=== PATIENT | male | born 1950 | race Caucasian/White ===

== ENCOUNTER 2016-11-04 22:15 | Inpatient (IN) | payer OTHER ==
[~2016-11-04] VITALS: Ht 165.1 cm; Wt 90.7 kg
[~2016-11-04 22:15] MED LIST: ASPI325T4 PO; HYDR-2666 PO; OMEG10006 PO
--- NOTE | 2016-11-04 23:50 | PHYS DOC ---
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 States he missed a step going up the steps. Has right neck pain, back pain, right hip pain, and right groin pain. States low back pain is the worst and is acute on chronic. All pains are constant, achy, severe, and worse with movement. He denies LOC, headache, vision changes, dizziness, nausea or vomiting, chest pain, dyspnea, abdominal pain, saddle anesthesia, numbness, tingling, weakness. Review of Systems Review of Systems Constitutional: Denies fever or chills [] Eyes: Denies change in visual acuity, redness, or eye pain [] HENT: Denies nasal congestion or sore throat [] Respiratory: Denies cough or shortness of breath [] Cardiovascular: No additional information not addressed in HPI [] GI: Denies abdominal pain, nausea, vomiting, bloody stools or diarrhea [] : Denies dysuria or hematuria [] Musculoskeletal: Has back pain and joint pain [] Integument: Denies rash or skin lesions [] Neurologic: Denies headache, focal weakness or sensory changes [] Endocrine: Denies polyuria or polydipsia [] Current Medications Current Medications Current Medications Medications (Trade) Dose Ordered Sig/Kiara Start Time Stop Time Status Last Admin Dose Admin Acetaminophen (Tylenol) 650 mg PRN Q4HRS PRN 11/05/16 01:00 11/06/16 00:59 Fentanyl Citrate (Fentanyl 2ml Vial) 50 mcg PRN Q15MIN PRN 11/04/16 23:15 11/05/16 23:14 11/05/16 00:45 50 MCG Ketorolac Tromethamine (Toradol) 15 mg 1X ONCE 11/05/16 01:00 11/05/16 01:01 DC 11/05/16 01:29 15 MG Morphine Sulfate 4 mg PRN Q2HR PRN 11/05/16 01:00 11/06/16 00:59 Nicotine (Nicoderm Cq 21mg) 1 patch 1X ONCE 11/05/16 02:30 11/05/16 02:31 DC Ondansetron HCl (Zofran) 4 mg PRN Q8HRS PRN 11/05/16 01:00 11/06/16 00:59 Allergies Allergies Allergies Coded Allergies Type Severity Reaction Last Updated Verified prochlorperazine Allergy Unknown seizures 02/04/15 No Physical Exam Physical Exam Constitutional: Well developed, well nourished, no acute distress, non-toxic appearance. [] HENT: Normocephalic, atraumatic, bilateral external ears normal, oropharynx moist, nose normal. [] Eyes: PERRLA, EOMI. [] Neck: Normal range of motion, supple. Has right paraspinal and midline spinal tenderness with no palpable abnormality. [] Cardiovascular:Heart rate regular rhythm [] Lungs & Thorax: Bilateral breath sounds clear to auscultation. No chest wall tenderness [] Abdomen: Bowel sounds normal, soft, no tenderness. [] Skin: Warm, dry, no erythema, no rash. [] Back: No midline spinal tenderness, no CVA tenderness. Has bilateral thoracic and lumbar paraspinal tenderness with no palpable abnormality. Has tenderness about right SI joint. [] Extremities: Stable pelvis. No obvious deformity or discoloration of extremities. Has some right lateral hip tenderness with no visual or palpable abnormality. No joint tenderness otherwise. Full ROM of RUE, LUE, and LLE. Has very limited ROM of right hip due to pain in hip and back. Normal right knee/ ankle/toe ROM. Equal radial and dp pulses. Sensation intact to light touch. Neurologic: Alert and oriented X 3, normal motor function, normal sensory function, no focal deficits noted. [] Psychologic: Affect normal, judgement normal, mood normal. [] Current Patient Data Vital Signs Vital Signs Date Time Temp Pulse Resp B/P Pulse Ox O2 Delivery O2 Flow Rate FiO2 11/05/16 00:45 18 96 11/05/16 00:08 Room Air 11/04/16 22:15 98.6 64 122/60 98.6 Lab Values Laboratory Tests Test 11/05/16 01:45 White Blood Count 10.5x10^3/uL (4.0-11.0) Red Blood Count 5.13x10^6/uL (4.30-5.70) Hemoglobin 16.0g/dL (13.0-17.5) Hematocrit 47.8% (39.0-53.0) Mean Corpuscular Volume 93fL (79-100) Mean Corpuscular Hemoglobin 31pg (25-35) Mean Corpuscular Hemoglobin Concent 34g/dL (31-37) Red Cell Distribution Width 13.7% (11.5-14.5) Platelet Count 260x10^3/uL (140-400) Neutrophils (%) (Auto) 46% (31-73) Lymphocytes (%) (Auto) 41% (24-48) Monocytes (%) (Auto) 7% (0-9) Eosinophils (%) (Auto) 5% (0-3) H Basophils (%) (Auto) 1% (0-3) Neutrophils # (Auto) 4.8x10^3uL (1.8-7.7) Lymphocytes # (Auto) 4.3x10^3/uL (1.0-4.8) Monocytes # (Auto) 0.7x10^3/uL (0.0-1.1) Eosinophils # (Auto) 0.5x10^3/uL (0.0-0.7) Basophils # (Auto) 0.1x10^3/uL (0.0-0.2) Sodium Level 145mmol/L (136-145) Potassium Level 3.8mmol/L (3.5-5.1) Chloride Level 107mmol/L (98-107) Carbon Dioxide Level 29mmol/L (21-32) Anion Gap 9 (6-14) Blood Urea Nitrogen 20mg/dL (8-26) Creatinine 0.8mg/dL (0.7-1.3) Estimated GFR (Cockcroft-Gault) 96.4 Glucose Level 101mg/dL (70-99) H Calcium Level 9.5mg/dL (8.5-10.1) Laboratory Tests 11/05/16 01:45 Laboratory Tests 11/05/16 01:45 Radiology/Procedures Radiology/Procedures X-ray of right hip and pelvis as interpreted by me was no acute fracture or dislocation CT head and C-spine without contrast IMPRESSION: 1. No acute intracranial process. 2. No acute osseous injury involving the cervical spine. Degenerative changes present throughout. Electronically signed by: Nidhi Borja (Nov 04, 2016 23:56:50) CT thoracic spine without contrast IMPRESSION: No acute fracture or malalignment. Degenerative changes present throughout. Electronically signed by: Nidhi Borja (Nov 05, 2016 00:00:44) CT lumbar spine without contrast IMPRESSION 1. Multilevel degenerative change in the lumbar spine with spinal stenosis and foraminal stenosis. 2. No acute fracture. Electronically signed by: Alan Story MD (Nov 05, 2016 00:17:59) CT pelvis without contrast IMPRESSION 1. Degenerative disc disease and degenerative facet arthritis in the lower lumbar spine. 2. No acute pelvic fracture. Electronically signed by: Alan Story MD (Nov 05, 2016 01:52:13) Course & Med Decision Making Course & Med Decision Making Pertinent Labs and Imaging studies reviewed. (See chart for details) Laboratory and imaging evaluation is unremarkable. His pain is not controlled and he will not ambulate due to significant low back pain. Will admit for symptom control. Discussed case with Dr. Martínez, who will admit. Dragon Disclaimer Dragon Disclaimer This electronic medical record was generated, in whole or in part, using a voice recognition dictation system. Departure Departure Impression: Primary Impression: Back pain Additional Impressions: Neck pain on right side Right hip pain Acute thoracic back pain Disposition: ADMITTED INPATIENT Condition: STABLE Referrals: YOVANNY HERNANDEZ MD (PCP) Problem Qualifiers Primary Impression: Back pain Back pain location: low back pain Chronicity: acute Back pain laterality: right Sciatica presence: without sciatica Qualified Code: M54.5 - Low back pain Additional Impressions: Acute thoracic back pain Back pain laterality: midline Qualified Code: M54.6 - Pain in thoracic spine Dary BENTLEY MD Nov 04, 2016 23:50
--- NOTE | 2016-11-04 23:57 | RAD ---
INDICATION: 66-year-old male fell backwards down stairs, with head and neck pain. COMPARISON: None TECHNIQUE: Axial, noncontrast CT images obtained through the head and cervical spine. Coronal and sagittal reformats are provided of the cervical spine. One or more of the following individualized dose reduction techniques were utilized for this examination: 1. Automated exposure control; 2. Adjustment of the mA and/or kV according to patient size; 3. Use of iterative reconstruction technique. FINDINGS: No acute intracranial process is identified, specifically no acute blood products, midline shift, mass effect or extra-axial fluid collections. Ventricles and sulci appear appropriate for patient's age. Basilar cisterns are maintained. The visualized paranasal sinuses are clear. Mastoid air cells are clear. No calvarial fracture is present. Overlying scalp is intact. No acute fracture or dislocation is seen within the cervical spine. The C1-C2 articulation is maintained. Normal cervical lordosis and alignment is maintained. The posterior elements are intact. Degenerative changes are present throughout. Visualized soft tissues of the neck demonstrate no acute finding. Visualized lung apices are clear. IMPRESSION: 1. No acute intracranial process. 2. No acute osseous injury involving the cervical spine. Degenerative changes present throughout. Electronically signed by: Nidhi Borja (Nov 04, 2016 23:56:50)
--- NOTE | 2016-11-05 00:02 | RAD ---
INDICATION: Fell backwards down stairs, upper back pain. COMPARISON: None TECHNIQUE: Axial CT images obtained through the thoracic spine without intravenous contrast. Coronal and sagittal reformats are provided. One or more of the following individualized dose reduction techniques were utilized for this examination: 1. Automated exposure control; 2. Adjustment of the mA and/or kV according to patient size; 3. Use of iterative reconstruction technique. FINDINGS: No acute fracture or dislocation is seen. Normal thoracic kyphosis and alignment is maintained. Posterior elements remain intact and aligned. Degenerative changes are present throughout the thoracic spine. Visualized lungs demonstrate mild atelectasis. Scattered calcified granulomas present. IMPRESSION: No acute fracture or malalignment. Degenerative changes present throughout. Electronically signed by: Nidhi Borja (Nov 05, 2016 00:00:44)
[2016-11-05] MEDS: FENTANYL PF 100 MCG/2 ML VIAL. IV PRN ×2 (00:08→00:45)
--- NOTE | 2016-11-05 00:29 | RAD ---
PROCEDURE CT lumbar spine without contrast HISTORY back pain after fall backwards down stairs; pt unable to raise arms for exam TECHNIQUE One or more of the following individualized dose reduction techniques were utilized for this examination: 1. Automated exposure control; 2. Adjustment of the mA and/or kV according to patient size; 3. Use of iterative reconstruction technique.One or more of the following individualized dose reduction techniques were utilized for this examination: 1. Automated exposure control; 2. Adjustment of the mA and/or kV according to patient size; 3. Use of iterative reconstruction technique. COMPARISON Comparison made with an MRI from June 2013. Findings There is atherosclerotic change in the aorta without an aneurysm. There is degenerative and hypertrophic change in the lumbar spine. There is no acute fracture. There is disc space narrowing at multiple levels. There is mild retrolisthesis of L2 relative to L3. There is a prominent spur at L2-3 with spinal stenosis and bilateral foraminal stenosis at that level. There is also foraminal stenosis at L3-4 and to a lesser extent at L4-5 and L5-S1. There is also moderate spinal stenosis at L3-4 and L4-5. IMPRESSION 1. Multilevel degenerative change in the lumbar spine with spinal stenosis and foraminal stenosis. 2. No acute fracture. Electronically signed by: Alan Story MD (Nov 05, 2016 00:17:59)
[2016-11-05] MEDS ORDERED: ONDANSETRON PF 4 MG/2 ML VIAL. IV PRN (01:00)
[2016-11-05] MEDS ORDERED: ACETAMINOPHEN 325 MG TABLET. PO PRN (01:00)
[2016-11-05] MEDS ORDERED: KETOROLAC 15 MG/ML VIAL. IV ONE (01:00)
--- NOTE | 2016-11-05 01:53 | RAD ---
PROCEDURE CT pelvis without contrast HISTORY SI pain with movement after fall yesterday
TECHNIQUE One or more of the following individualized dose reduction techniques were utilized for this examination: 1. Automated exposure control; 2. Adjustment of the mA and/or kV according to patient size; 3. Use of iterative reconstruction technique.One or more of the following individualized dose reduction techniques were utilized for this examination: 1. Automated exposure control; 2. Adjustment of the mA and/or kV according to patient size; 3. Use of iterative reconstruction technique. COMPARISON None FINDINGS Axial CT images were obtained through the pelvis. Sagittal and coronal reconstructed images were reviewed. Appendix is normal. Bladder is mildly distended. There is no pelvic adenopathy or mass noted bowel pattern is normal. There is marked facet arthritis in the lower lumbar spine. A pelvic fracture is not identified. A hip fracture is not evident. There is degenerative disc disease in the lower lumbar spine. IMPRESSION 1. Degenerative disc disease and degenerative facet arthritis in the lower lumbar spine. 2. No acute pelvic fracture. Electronically signed by: Alan Story MD (Nov 05, 2016 01:52:13)
[2016-11-05 02:00] LABS: BASO # 0.1 x10^3/uL (0.0-0.2); BASO % 1 % (0-3); EOS % 5 % (0-3); HEMATOCRIT 47.8 % (39.0-53.0); LYMPH # 4.3 x10^3/uL (1.0-4.8); LYMPH % 41 % (24-48); MEAN CORPUSCULAR HEMOGLOBIN 31 pg (25-35); MEAN CORPUSCULAR HGB CONC 34 g/dL (31-37); MEAN CORPUSCULAR VOLUME 93 fL (79-100); MONO % 7 % (0-9); NEUT % 46 % (31-73); PLATELET COUNT 260 x10^3/uL (140-400); RED BLOOD COUNT 5.13 x10^6/uL (4.30-5.70); RED CELL DISTRIBUTION WIDTH 13.7 % (11.5-14.5); WHITE BLOOD COUNT 10.5 x10^3/uL (4.0-11.0)
[2016-11-05 02:18] LABS: CALCIUM 9.5 mg/dL (8.5-10.1); CREATININE 0.8 mg/dL (0.7-1.3); GFR 96.4; POTASSIUM 3.8 mmol/L (3.5-5.1)
[2016-11-05] MEDS ORDERED: NICOTINE 21MG PATCH. TD ONE (02:30)
--- NOTE | 2016-11-05 02:55 | ACF ---
Admit Criteria Forms Admit Criteria Forms Admit Criteria Forms BACK PAIN Clinical Indications for Admission to Inpatient Care (Place 'X' for any and all applicable criteria): Admission is indicated for ANY ONE of the following (1)(2)(3)(4)(5)(6): [X]I. Inpatient admission required rather than observation care (Also use Back Pain: Observation Care as appropriate) because of ANY ONE of the following [X]a) Severe pain requiring acute inpatient management [ ]b) Immediate inpatient surgery [X]c) Other condition, treatment or monitoring requiring inpatient admission [ ]II. Spine fracture with significant damage or threat of damage to vertebral column or spinal cord [ ]III. Progressive or severe neurologic deficit [ ]IV. Suspected spinal infection (e.g., epidural abscess, vertebral osteomyelitis)(10) [ ]V. Suspected cause requires inpatient treatment (eg, aortic dissection) [ ]. Cauda equina syndrome as indicated by ANY ONE of the following (9): [ ]a) Bowel dysfunction [ ]b) Bladder dysfunction [ ]c) Saddle anesthesia [ ]d) Neurologic abnormality suggesting cauda equina impingement Extended stay beyond goal length of stay may be needed for (3)(25): [ ]a) Spinal cord compression from stenosis, disk, or tumor (8)(9) [ ]b) Traumatic or pathologic vertebral fracture (33) [ ]c) Vertebral infection(10) [ ]d) Severe pain that is difficult to control [ ]e) Older patients(65 years or older) The original [employer] content created by [employer] has been revised. The portions of the content which have been revised are identified through the use of italic text or in bold, and [facility] has neither reviewed nor approved the modified material. All other unmodified content is copyright [facility]. Please see references footnoted in the original [facility] edition 2016 ARTURO SIERRA Nov 05, 2016 02:55
[2016-11-05 03:00] VITALS: BP 154/62
[2016-11-05] MEDS: MORPHINE SULFATE 4 MG/ML DISP.SYRIN. IV PRN ×2 (05:03→09:01)
--- NOTE | 2016-11-05 07:42 | RAD ---
Pelvis with right hip, 3 views, 11/04/2016: History: Fall, pain No fracture or dislocation is identified. There is mild narrowing of the hip joints with mild marginal spurring. The periarticular soft tissues are unremarkable. IMPRESSION: No acute pelvic or right hip abnormality is detected.
[2016-11-05 07:47] VITALS: BP 129/60
[2016-11-05 11:01] VITALS: BP 116/63
[2016-11-05 15:08] VITALS: BP 122/50
[2016-11-05] MEDS ORDERED: PHEN100C PO (15:20)
[2016-11-05] MEDS ORDERED: OXYC5CAP3 PO (15:48)
[2016-11-05] MEDS ORDERED: OMEGA-3 FATTY ACIDS/FISH OIL 1,000 MG CAPSULE. PO SCH (16:00)
[2016-11-05] MEDS ORDERED: ASPIRIN 325 MG TABLET PO SCH (16:00)
[2016-11-05] MEDS ORDERED: HYDROCODONE/APAP 5/325MG TABLET. PO SCH (21:00)
[2016-11-05] MEDS ORDERED: PHENYTOIN SODIUM EXTENDED 100 MG CAPSULE PO SCH (21:00)
--- NOTE | 2016-11-06 17:13 | SSS ---
ADMIT DATE: 11/05/2016 CHIEF COMPLAINT: Status post fall down stairs with back pain. HISTORY OF PRESENT ILLNESS: The patient is a 66-year-old gentleman with history of chronic low back pain for which he is being followed by Dr. Gallegos as well as COPD, CAD, peripheral vascular disease, who presented after falling down the stairs after missing a step. He fell on several baskets of laundry, which had been placed at the bottom of the stairs. Nevertheless, sustained pain to the right neck, back, hip and right groin area and was therefore admitted for pain control. PAST MEDICAL HISTORY: Chronic lower back pain, COPD, CAD, CVA and seizure history. FAMILY HISTORY: Positive for CAD. SOCIAL HISTORY: Lives with his family. Smokes cigarettes and uses e-cig.s. ALLERGIES: PROCHLORPERAZINE. MEDICATIONS: Home medications reconciled with [facility]. REVIEW OF SYSTEMS: Positive for pain in neck and back, mainly on the right. He is able to move and walk. Rest of organ system review was negative. PHYSICAL EXAMINATION: VITAL SIGNS: Show a blood pressure of 116/63, heart rate at 80, respiratory rate at 20. He is afebrile. GENERAL: This is a well-nourished 66-year-old gentleman, alert and oriented, in no acute distress. HEENT: Shows no scleral icterus. NECK: Supple. Pain to palpation in his trapezius muscles. LUNGS: Clear to auscultation bilaterally. HEART: Regular rate and rhythm. ABDOMEN: Has positive bowel sounds, soft, nontender. EXTREMITIES: Show no edema, no bruising noted. Pain over his back on the right in the lumbar area. LABORATORY DATA: CBC with a WBC of 10.5, hemoglobin 16.0, platelets of ____. Chemistries with a BUN and creatinine of 20 and 0.8. Normal electrolytes. IMAGING STUDIES: Showed CT of the head to pelvis showed only DJD and degenerative facet arthritis in the lower lumbar spine, no acute fractures were noted. HOSPITAL COURSE: The patient was admitted for pain control. This was achieved with IV and p.o. narcotics as well as ice and NSAIDs. The patient actually improved significantly over the next 24 hours. He felt ready for discharge in the afternoon. He was therefore returned to home with an additional script of oxycodone. DISCHARGE DATE: 11/05/2016. DISCHARGE DISPOSITION: To home. DISCHARGE CONDITION: Improved. DISCHARGE DIAGNOSIS: Acute on chronic back pain status post fall. DISCHARGE MEDICATIONS: Please refer to MAR. DISCHARGE INSTRUCTIONS: The patient will follow up with PCP and Dr. Gallegos. JOHN MALONE MD DR: UR/nts JOB#: [id number] / [id number] Valerie King
== END 2016-11-05 17:07 | disposition home or self-care (01) | DRG 552 ==
LOC: ER 22:15 → 6 SOUTH 11-05 01:04 → ER 11-05 01:45
PROVIDERS: ADMIT Internal Medicine; ATTEND Internal Medicine
DX: M54.89 Other dorsalgia (principal); M51.36 Other intervertebral disc degeneration, lumbar region; M54.5 Low back pain; G89.29 Other chronic pain; F17.210 Nicotine dependence, cigarettes, uncomplicated; I25.10 Atherosclerotic heart disease of native coronary artery without angina pectoris; I73.9 Peripheral vascular disease, unspecified; J44.9 Chronic obstructive pulmonary disease, unspecified; M47.896 Other spondylosis, lumbar region; M48.06 Spinal stenosis, lumbar region; W10.8XXA Fall (on) (from) other stairs and steps, initial encounter; Y93.89 Activity, other specified; Y92.098 Other place in other non-institutional residence as the place of occurrence of the external cause; Y99.8 Other external cause status; Z88.8 Allergy status to other drugs, medicaments and biological substances; Z82.49 Family history of ischemic heart disease and other diseases of the circulatory system; Z86.73 Personal history of transient ischemic attack (TIA), and cerebral infarction without residual deficits; Z79.899 Other long term (current) drug therapy
CPT/HCPCS: 36415; 70450; 72125; 72128; 72131; 72192; 73502; 80048; 85027; 96374; 96375; J1885; J2270; J2405; J3010; 99285-25